=== PATIENT | male | born 1995 | race Caucasian/White ===

== ENCOUNTER 2020-06-13 15:02 | Emergency (ER) | payer BC ==
--- NOTE | 2020-06-13 16:21 | XRAY ---
Indication: Low back pain following fall. Multiple contiguous axial images obtained through the lumbar spine. Sagittal and coronal reformatted images obtained. Comparison: None Axial images are negative for acute fracture, suspicious bone lesions, or spinal canal stenosis. Facets are symmetric. Sagittal and coronal reformatted images demonstrates normal alignment with vertebral body heights/disc spaces maintained. No acute compression fracture or subluxation. Visualized noncontrast soft tissues are unremarkable. Impression: Normal CT lumbar spine.
[2020-06-13] MEDS ORDERED: TORAdol 30 mg Injection IM ONE (16:25)
--- NOTE | 2020-06-13 16:31 | ERPHSYRPT ---
- History of Present Illness Source: patient Patient Subjective Stated Complaint: Pt fell on the ice and thinks he injured his kidney due to ongoing pain Triage Nursing Assessment: Pt drove self to the ER, vitals wnl, rates right flank pain as 9/10, denies pain with urination, denies abdominal pain, skin n/w/d, pulses normal Physician History: 25 yo wm w lumbar pain s/p fall at home 4 days ago. Pt states that pain is 9/10 and worse w movement. He was seen by a chiropractor at [facility] today. Pt denies previous h/o back pain/HENDERSON/LOC/Cervical pain/Chest pain/abdominal pain/hip pain/upper or LE pain. Timing/Duration: other (4 days) Method of Injury: fall Quality: dull, aching Back Pain Location: lumbar spine Severity of Pain-Max: severe Severity of Pain-Current: severe Modifying Factors: Improves With: movement Associated Symptoms: denies symptoms Previous symptoms: no prior history Allergies/Adverse Reactions: No Known Drug Allergies Allergy (Verified 06/13/20 15:17) Travel Risk - International Travel Have you traveled outside of the country in past 3 weeks: No - Coronavirus Screening Are you exhibiting any of the following symptoms?: No Close contact with a COVID-19 positive Pt in past 14-21 Days: No - Review of Systems Constitutional: No Symptoms Eyes: No Symptoms Ears, Nose, & Throat: No Symptoms Respiratory: No Symptoms Cardiac: No Symptoms Abdominal/Gastrointestinal: No Symptoms Genitourinary Symptoms: No Symptoms Musculoskeletal: No Symptoms, Back Pain Skin: No Symptoms Neurological: No Symptoms Psychological: No Symptoms Endocrine: No Symptoms Hematologic/Lymphatic: No Symptoms Immunological/Allergic: No Symptoms - Past Medical History Pertinent Past Medical History: No - Past Surgical History Past Surgical History: Yes Musculoskeletal: Orthopedic Surgery Other Surgical History: left shoulder - Social History Smoking Status: Never smoker Exposure to second hand smoke: Yes Drug Use: none Patient Lives Alone: No Significant Family History: no pertinent family hx - Nursing Vital Signs Nursing Vital Signs: Initial Vital Signs Temperature 98.2 F 06/13/20 15:08 Pulse Rate 73 06/13/20 15:08 Blood Pressure 131/87 06/13/20 15:08 O2 Sat by Pulse Oximetry 98 06/13/20 15:08 Pain Scale Pain Intensity [] 9 Pain Intensity 5 - Physical Exam General Appearance: no apparent distress Eye Exam: PERRL/EOMI, eyes nml inspection Ears, Nose, Throat Exam: normal ENT inspection, TMs normal, pharynx normal, moist mucous membranes Neck Exam: normal inspection, non-tender, supple, full range of motion, No meningismus, No mass, No Brudzinski, No Kernig's Respiratory Exam: normal breath sounds, chest tenderness, lungs clear, airway intact, No respiratory distress Cardiovascular Exam: regular rate/rhythm, normal heart sounds, normal peripheral pulses, No murmur Gastrointestinal Exam: soft, normal bowel sounds, No tenderness Rectal Exam: deferred Back Exam: vertebral tenderness (Mid L-spine TTP) Extremity Exam: normal inspection, normal range of motion, pelvis stable Peripheral Pulses: carotid (R): 2+, carotid (L): 2+ Neurologic Exam: alert, oriented x 3, cooperative, interface developer II-XII nml as tested, normal mood/affect, nml cerebellar function, nml station & gait, sensation nml, No motor deficits, No sensory deficit Skin Exam: normal color, warm, dry, No rash Lymphatic Exam: No adenopathy SpO2 Interpretation: normal SpO2: 98 O2 Delivery: Room Air - Course Nursing assessment & vital signs reviewed: Yes - CT Exams Lumbar Spine CT Interpretation: Discussed w/radiologist (Neg) Ordered Tests: Active Orders 24 hr Category Date Time Status LUMBAR SPINE W/O [CT] Stat Exams 06/13/20 15:14 Completed Medication Summary Discontinued Medications Generic Name Dose Route Start Last Admin Trade Name Kasandra PRN Reason Stop Dose Admin Ketorolac Tromethamine 60 mg 06/13/20 16:25 06/13/20 17:04 Toradol 30 Mg Injection IM 06/13/20 16:26 60 mg STAT ONE Administration Ketorolac Tromethamine Confirm 06/13/20 17:03 Toradol 30 Mg Injection Administered 06/13/20 17:04 Dose 60 mg .[employer]TE [employer] - Progress Progress Note: 06/13/20 16:32 60mg IM Toradol Counseled pt/family regarding: need for follow-up, rad results - Departure Departure Disposition: Home Clinical Impression: Lumbar strain Condition: Stable Critical Care Time: No Referrals: DOCTOR,NO FAMILY [Primary Care Provider] - Instructions: Low Back Pain (DC) Additional Instructions: Heat/Rest/Massage Follow up family MD as needed Forms: Work/School Release Form Prescriptions: Orphenadrine Citrate 100 mg [Norflex 100 MG Tablet] 100 mg PO BID PRN PRN #10 tab PRN Reason: Pain Ketorolac Tromethamine [Toradol] 10 mg PO TID PRN PRN #10 tablet PRN Reason: Pain
[2020-06-13 17:01] VITALS: BP 108/73; PULSE 90
[2020-06-13] MEDS ORDERED: TORAdol 30 mg Injection ONE (17:03)
[2020-06-13 17:24] VITALS: O2SAT 98
== END 2020-06-13 17:29 | disposition home or self-care (01) ==
LOC: ED 15:02
DX: S39.012A Strain of muscle, fascia and tendon of lower back, initial encounter (principal); W00.0XXD Fall on same level due to ice and snow, subsequent encounter
CPT/HCPCS: 72131; 96372; 99284; J1885